=== PATIENT | female | born 1955 | race Two or more races ===

== ENCOUNTER 2017-07-18 15:07 | Emergency (ER) | payer OTHER ==
[~2017-07-18] VITALS: Ht 152.4 cm; Wt 51.7 kg
[2017-07-18 15:10] VITALS: BP 115/64
== END 2017-07-18 15:41 | disposition home or self-care (01) ==
LOC: ER 15:08
DX: T21.21XA Burn of second degree of chest wall, initial encounter (principal); T23.202A Burn of second degree of left hand, unspecified site, initial encounter; T21.22XA Burn of second degree of abdominal wall, initial encounter; I34.1 Nonrheumatic mitral (valve) prolapse; Z88.5 Allergy status to narcotic agent; F41.9 Anxiety disorder, unspecified; X12.XXXA Contact with other hot fluids, initial encounter; Y93.89 Activity, other specified; Y92.89 Other specified places as the place of occurrence of the external cause; Y99.8 Other external cause status
CPT/HCPCS: 99281; A4606; A6253 ×2; Z7610; Z7502